=== PATIENT | male | born 1965 | race Caucasian/White ===

== ENCOUNTER 2017-04-25 20:11 | Inpatient (IN) | payer MEDICAID ==
[~2017-04-25 20:11] MED LIST: ALBU.5I NEB; FLUMAZENIL 0.5 MG/5 ML VIAL IV PUSH PRN; LORazepam 1 MG TAB PO PRN; LORazepam 2 MG TAB PO PRN; LORazepam 2 MG/ML VIAL IV PUSH PRN; NS + KCL 40 MEQ INJ 1,000 ML IV SCH; ONDANSETRON HCL 4 MG/2 ML VIAL IV PUSH PRN; POTASSIUM CHLORIDE 20 MEQ CONTROLLED RELEASE TAB PO ONE; SODIUM CHLORIDE 0.9% FLUSH 10 ML FLUSH IV FLUSH PRN; VENTAER INH
[2017-04-25 20:30] VITALS: BP 142/90; PULSE 66; RESP 18; TEMP 98.9; O2SAT 99
[2017-04-25] MEDS: CALCIUM CARBONATE 1.25 GM (CA 500 MG) TAB PO SCH (21:00)
--- NOTE | 2017-04-25 21:34 | HHI.HP ---
[facility]Staff Admission Diagnosis Alcohol Intoxication, hyperkalemia, hypernatremia . Diagnoses: (1) Alcohol intoxication Chief Complaint: "I guess I must have drunk too much" Travel History International Travel<30 Days: No Contact w/Intl Traveler <30 Da: No History of Present Illness Mr. Franco is a 52-year-old male with a history of alcohol abuse, pituitary adenoma, COPD, asthma, GERD, and gastritis who presents to the emergency room in [place] on 04/25/2017 after being seen appearing intoxicated by police officers. He was transferred to [facility] for treatment of severe hypokalemia and hypernatremia. The patient is seen in the CDU. He reports that he only drank half a bottle of mouthwash today and was seen by police perhaps walking funny and the next thing he knew, he was picked up by an ambulance and brought to the hospital. He reports he did not think he was drinking too much. He reports not drinking daily. He denies any history of seizures though they are noted in the medical record being reported and related to alcohol withdrawal. He denies fever but reports he is constantly cold and feeling chilled. He reports diarrhea lasting for 90 days with recent history of antibiotics but diarrhea has been present longer than that treatment and does not appear to be related. He states his stools are clear liquid without blood or black discoloration. He reports stool occurring 10 times per day. He reports some burning with urination but denies any penile discharge. He denies hematuria. He reports CVA tenderness though I was unable to elicit this upon examination. Urinalysis was negative. He denies chest pain, cough, shortness of breath, or syncope. He reports getting healthcare at [facility]" but cannot tell me what his doctor's name is. He states he was recently diagnosed with pituitary adenoma and "thin bones". Review of Systems Except as stated in HPI: all other systems reviewed are Neg Past Family Social History Past Medical History Pituitary adenoma COPD Asthma "Thin bones" GERD Gastritis Alcohol abuse Tobacco abuse DTs Denies history of seizures today but this is noted in medical record as related to alcohol withdrawal Past Surgical History Cholecystectomy . Reported Medications Reported Meds & Active Scripts Active Reported Ventolin Hfa 18 GM Inh (Albuterol Sulfate) 90 Mcg/Act Aer 2 Puff INH Q4H PRN Albuterol Neb (Albuterol Sulfate) 2.5 Mg/0.5 Ml Neb 2.5 Mg NEB ONCE Note: The Albuterol Sulfate Inhalation Solution is concentrated and must be diluted. Read complete instructions carefully before using. . Allergies: Coded Allergies: ondansetron (Unverified Allergy, Severe, Nausea/Vomiting, 01/06/17) Active Ordered Medications Current Medications Sodium Chloride (NS Flush) 2 ml UNSCH PRN IV FLUSH FLUSH AFTER USING IV ACCESS ; Start 04/25/17 at 17:45 Sodium Chloride (NS Flush) 2 ml BID IV FLUSH ; Start 04/25/17 at 21:00 Folic Acid (Folate) 1 mg DAILY PO ; Start 04/26/17 at 09:00; Stop 05/01/17 at 08 :59 Thiamine HCl (Vitamin B1) 100 mg DAILY PO ; Start 04/26/17 at 09:00 Multivitamins/ Minerals Therapeutic (Theragran M Tab) 1 tab DAILY PO ; Start at 09:00; Stop 05/01/17 at 08:59 Ondansetron HCl (Zofran Inj) 4 mg Q6H PRN IV PUSH NAUSEA OR VOMITING; Start at 17:45 Flumazenil (Romazicon Inj) 0.2 mg Q1M PRN IV PUSH SEE LABEL COMMENTS; Start at 17:45 Lorazepam (Ativan) 1 mg Q4H PRN PO CIWA 8 - 10; Start 04/25/17 at 17:45 Lorazepam (Ativan Inj) 1 mg Q4H PRN IV PUSH CIWA 8 - 10; Start 04/25/17 at 17: 45 Lorazepam (Ativan) 2 mg Q2H PRN PO CIWA 11-14; Start 04/25/17 at 17:45 Lorazepam (Ativan Inj) 2 mg Q2H PRN IV PUSH CIWA 11-14; Start 04/25/17 at 17:45 Lorazepam (Ativan Inj) 2 mg Q1H PRN IV PUSH CIWA 15-20; Start 04/25/17 at 17:45 Lorazepam (Ativan Inj) 2 mg Q15M PRN IV PUSH CIWA > 20; Start 04/25/17 at 17:45 Potassium Chloride/Sodium Chloride 1,000 ml @ 84 mls/hr [id number] IV ; Start 04/25/17 at 20:00; Stop 04/25/17 at 21:05; Status DC Potassium Chloride (KCl) 40 meq ONCE ONCE PO ; Start 04/25/17 at 20:00; Stop 04/25/17 at 20:21; Status DC Calcium Carbonate (Oscal) 500 mg Q12HR PO ; Start 04/25/17 at 21:00 Potassium Chloride 40 meq/ Sodium Chloride 1,020 ml @ 84 mls/hr Q12H9M IV ; Start 04/25/17 at 21:15 Famotidine (Pepcid) 20 mg BID PO ; Start 04/25/17 at 21:45 . Family History Mother with heart disease and COPD Father with heart disease . Social History Tobacco: Smokes one half pack per day for many years Alcohol: Reports alcohol use twice a week and just a few drinks when he does drink Illicit Drugs: Denies . Physical Exam Vital Signs Vital Signs Date Time Temp Pulse Resp B/P (MAP) Pulse Ox O2 Delivery O2 Flow Rate FiO2 04/25/17 20:30 98.9 66 18 142/90 (107) 99 Physical Exam GENERAL: This is a cachectic, chronically ill-appearing male patient who appears older than stated age, in no apparent distress. SKIN: Bug bites noted at base of neck, no lice noted upon inspection of head and hair. Cool and dry. HEAD: Atraumatic. Normocephalic. EYES: No scleral icterus. No injection or drainage. ENT: Nose without bleeding, purulent drainage. NECK: Trachea midline. No JVD. CARDIOVASCULAR: Regular rate and rhythm without murmurs, gallops, or rubs. RESPIRATORY: Clear to auscultation. Breath sounds equal bilaterally. No wheezes , rales, or rhonchi. GASTROINTESTINAL: Abdomen soft, non-tender, nondistended. No guarding. MUSCULOSKELETAL: Extremities without clubbing, cyanosis, or edema. No calf tenderness. Tremors noted bilateral hands. NEUROLOGICAL: Awake and alert. Motor and sensory grossly within normal limits. Normal speech. . Laboratory From [place]: Laboratory Tests Test 04/25/17 13:35 04/25/17 16:00 04/25/17 17:25 White Blood Count 3.8 TH/MM3 Red Blood Count 2.78 MIL/MM3 Hemoglobin 11.1 GM/DL Hematocrit 30.3 % Mean Corpuscular Volume 109.0 FL Mean Corpuscular Hemoglobin 39.9 PG Mean Corpuscular Hemoglobin Concent 36.6 % Platelet Count 128 TH/MM3 Mean Platelet Volume 10.8 FL Differential Total Cells Counted 100 Neutrophils % (Manual) 56 % Lymphocytes % 32 % Monocytes % 10 % Eosinophils % 2 % Neutrophils # (Manual) 2.1 TH/MM3 Differential Comment FINAL DIFF MANUAL Platelet Estimate LOW Platelet Morphology Comment NORMAL Polychromasia 2.0 % Target Cells 1+ Stomatocytes 1+ Protein Corrected Calcium 7.7 MG/DL Lipase 160 U/L Salicylates Level 2.1 MG/DL Acetaminophen Level 2.2 MCG/ML Ethyl Alcohol Level 284 MG/DL Urine Collection Type CLEAN CATCH Urine Color YELLOW Urine Turbidity CLEAR Urine pH 7.0 Urine Specific [place] 1.010 Urine Protein NEG mg/dL Urine Glucose (UA) NEG mg/dL Urine Ketones NEG mg/dL Urine Occult Blood NEG Urine Nitrite NEG Urine Bilirubin NEG Urine Urobilinogen 0.2 MG/DL Urine Leukocyte Esterase NEG Urine WBC 0-2 /hpf Microscopic Urinalysis Comment CULT NOT INDICATED Urine Opiates Screen NEG Urine Barbiturates Screen NEG Urine Amphetamines Screen NEG Urine Benzodiazepines Screen NEG Urine Cocaine Screen NEG Urine Cannabinoids Screen NEG Blood Urea Nitrogen 4 MG/DL Creatinine 0.50 MG/DL Random Glucose 112 MG/DL Total Protein 5.9 GM/DL Albumin 2.5 GM/DL Calcium Level 8.2 MG/DL Alkaline Phosphatase 125 U/L Aspartate Amino Transf (AST/SGOT) 92 U/L Alanine Aminotransferase (ALT/SGPT) 37 U/L Total Bilirubin 0.6 MG/DL Sodium Level 152 MEQ/L Potassium Level 2.7 MEQ/L Chloride Level 117 MEQ/L Carbon Dioxide Level 26.0 MEQ/L Anion Gap 9 MEQ/L Estimat Glomerular Filtration Rate 176 ML/MIN Caprini VTE Risk Assessment Caprini VTE Risk Assessment: No/Low Risk (score <= 1) Caprini Risk Assessment Model Point Value = 1 Point Value = 2 Point Value = 3 Point Value = 5 Age 41-60 Minor surgery BMI > 25 kg/m2 Swollen legs Varicose veins or History of unexplained or recurrent spontaneous Oral contraceptives or hormone replacement Sepsis (< 1 month) Serious lung disease, including pneumonia (< 1 month) Abnormal pulmonary function Acute myocardial infarction Congestive heart failure (< 1 month) History of inflammatory bowel disease Medical patient at bed rest Age 61-74 Arthroscopic surgery Major open surgery (> 45 min) Laparoscopic surgery (> 45 min) Malignancy Confined to bed (> 72 hours) Immobilizing plaster cast Central venous access Age >= 75 History of VTE Family history of VTE Factor V Leiden Prothrombin [id number] Lupus anticoagulant Anticardiolipin antibodies Elevated serum homocysteine Heparin-induced thrombocytopenia Other congenital or acquired thrombophilia Stroke (< 1 month) Elective arthroplasty Hip, pelvis, or leg fracture Acute spinal cord injury (< 1 month) Prophylaxis Regimen Total Risk Factor Score Risk Level Prophylaxis Regimen 0-1 Low Early ambulation 2 Moderate Order ONE of the following: *Sequential Compression Device (SCD) *Heparin 5000 units SQ BID 3-4 Higher Order ONE of the following medications: *Heparin 5000 units SQ TID *Enoxaparin/Lovenox 40 mg SQ daily (WT < 150 kg, CrCl > 30 mL/min) *Enoxaparin/Lovenox 30 mg SQ daily (WT < 150 kg, CrCl > 10-29 mL/min) *Enoxaparin/Lovenox 30 mg SQ BID (WT < 150 kg, CrCl > 30 mL/min) AND/OR *Sequential Compression Device (SCD) 5 or more Highest Order ONE of the following medications: *Heparin 5000 units SQ TID (Preferred with Epidurals) *Enoxaparin/Lovenox 40 mg SQ daily (WT < 150 kg, CrCl > 30 mL/min) *Enoxaparin/Lovenox 30 mg SQ daily (WT < 150 kg, CrCl > 10-29 mL/min) *Enoxaparin/Lovenox 30 mg SQ BID (WT < 150 kg, CrCl > 30 mL/min) AND *Sequential Compression Device (SCD) Assessment and Plan Problem List: (1) Alcohol intoxication ICD Code: F10.929 - Alcohol use, unspecified with intoxication, unspecified Status: Acute (2) Hypokalemia ICD Code: E87.6 - Hypokalemia (3) Hypernatremia ICD Code: E87.0 - Hyperosmolality and hypernatremia (4) Pituitary adenoma ICD Code: D35.2 - Benign neoplasm of pituitary gland (5) Diarrhea ICD Code: R19.7 - Diarrhea, unspecified (6) Pancytopenia ICD Code: D61.818 - Other pancytopenia (7) Tobacco abuse ICD Code: Z72.0 - Tobacco use Assessment and Plan Mr. Franco is a 52-year-old male with a history of alcohol abuse, pituitary adenoma, COPD, asthma, GERD, and gastritis who presents to the emergency room in [place] on 04/25/2017 after being seen appearing intoxicated by police officers. He was transferred to [facility] for treatment of severe hypokalemia and hypernatremia. Alcohol Intoxication - Denies daily alcohol use, reports history of DTs, denies history of alcohol withdrawal seizures - Reports drinking half a bottle of mouthwash today - ETOH 284 on admission, AST elevated at 92 and ALT normal at 37 suggestive of alcohol effect - [facility] protocol - Seizure precautions - Supplement with folic acid, thiamine, and multivitamins Severe hypokalemia - Potassium 2.1 initially and 2.7 on recheck - Potassium 50 mEq by mouth given in [place] - Patient should receive another 50 mEq by mouth here and half normal saline with 40 mEq of potassium running at 84 cc per hour - Recheck BMP in a.m. and follow results - Replace potassium as needed - Continuous cardiac telemetry to monitor for arrhythmia Hypernatremia, chronic - Sodium went from 150-152 (was 149 in September 2016) - Half normal saline with 40 mEq potassium at 84 cc/h to be infused - Check sodium in a.m. History of pituitary adenoma - will check TSH and follow results Diarrhea, chronic - We'll check stool culture, stool for C. difficile, and ova and parasites Pancytopenia - likely secondary to alcohol abuse - check iron studies - consider hematology consultation Tobacco Abuse - encouraged patient to quit smoking DVT prophylaxis - Early ambulation . Discussed Condition With Dr. Lawson, patient, and RN Casie Burroughs Apr 25, 2017 21:34
[2017-04-25] MEDS: SODIUM CHLORIDE 0.9% FLUSH 10 ML FLUSH IV FLUSH SCH (22:12)
[2017-04-25] MEDS: FAMOTIDINE 20 MG TAB PO SCH (22:15)
[2017-04-25] MEDS: POTASSIUM CHLORIDE INJ 40 MEQ in SODIUM CHLOR 0.45% 1000 ML INJ 1,000 ML IV SCH (22:17)
[2017-04-25] MEDS ORDERED: RESP: ALBUTEROL 2.5 MG/IPRATROPIUM 0.5 MG NEB (PRN) NEB (22:30)
[2017-04-25 23:01] VITALS: BP 125/81; PULSE 71; RESP 17; TEMP 98.9; O2SAT 95
[2017-04-26] MEDS ORDERED: POTASSIUM CHLORIDE 25 MEQ EFFERVESCENT TAB PO ONE ×2 (01:30→15:15)
[2017-04-26 04:07] VITALS: BP 135/85; PULSE 85; RESP 17; TEMP 98.7; O2SAT 98
[2017-04-26 05:05] LABS: C. DIFF EPI 027 PRESUMPTIVE NEGATIVE (NEGATIVE)
[2017-04-26 07:22] VITALS: BP 151/81; PULSE 82; RESP 22; TEMP 98.2; O2SAT 98
[2017-04-26 07:46] VITALS: BP 140/87; PULSE 81; RESP 22; TEMP 97.4; O2SAT 100
[2017-04-26] MEDS: CALCIUM CARBONATE 1.25 GM (CA 500 MG) TAB PO SCH ×2 (09:00→22:48)
[2017-04-26] MEDS: MULTIVITAMINS/MINERALS THERAPEUTIC TAB PO SCH (09:00)
[2017-04-26] MEDS: POTASSIUM CHLORIDE INJ 40 MEQ in SODIUM CHLOR 0.45% 1000 ML INJ 1,000 ML IV SCH (09:24)
[2017-04-26] MEDS: THIAMINE HCL 100 MG TAB PO SCH (10:04)
[2017-04-26] MEDS: FAMOTIDINE 20 MG TAB PO SCH ×2 (10:05→22:48)
[2017-04-26] MEDS: FOLIC ACID 1 MG TAB PO SCH (10:05)
[2017-04-26] MEDS: SODIUM CHLORIDE 0.9% FLUSH 10 ML FLUSH IV FLUSH SCH ×2 (10:05→22:49)
--- NOTE | 2017-04-26 10:44 | HHI.DCPOC ---
Discharge Care Plan Diagnosis: (1) Alcohol intoxication (2) Hypokalemia (3) Hypernatremia (4) Tobacco abuse (5) Diarrhea Goals to Promote Your Health * To prevent worsening of your condition and complications * To maintain your health at the optimal level Directions to Meet Your Goals Take your medications as prescribed Follow your dietary instruction Follow activity as directed Keep your appointments as scheduled Take your immunizations and boosters as scheduled If your symptoms worsen call your PCP, if no PCP go to Urgent Care Center or Emergency Room Smoking is Dangerous to Your Health. Avoid second hand smoke Call the 24-hour hour crisis hotline for domestic abuse at Supriya Loera PA-C Apr 26, 2017 10:44
--- NOTE | 2017-04-26 10:56 | HHI.PR ---
Subjective Remarks Follow up Alcohol intoxication/electrolyte abnormalities 04/26/17-patient seen and examined, alert and oriented 3. No acute event overnight. Taking by mouth without any compression nausea and vomiting. Said he's been having chronic diarrhea 6 weeks. C. difficile PCR and stool for ova and parasite negative. Patient reported a prior history of negative HIV testing 4 years ago Vitals stable. Objective Vitals Vital Signs Date Time Temp Pulse Resp B/P (MAP) Pulse Ox O2 Delivery O2 Flow Rate FiO2 04/26/17 07:46 97.4 81 22 140/87 (104) 100 04/26/17 07:22 98.2 82 22 151/81 (104) 98 04/26/17 04:07 98.7 85 17 135/85 (102) 98 04/25/17 23:01 98.9 71 17 125/81 (96) 95 04/25/17 20:30 98.9 66 18 142/90 (107) 99 I/O 04/25/17 04/25/17 04/25/17 04/26/17 04/26/17 04/26/17 07:00 15:00 23:00 07:00 15:00 23:00 Intake Total 480 ml Output Total 4 ml Balance 476 ml Intake Oral 480 ml Output Urine Total 4 ml Objective Remarks GENERAL: NAD SKIN: Warm and dry. HEAD: Normocephalic. EYES: No scleral icterus. No injection or drainage. NECK: Supple, trachea midline. No JVD or lymphadenopathy. CARDIOVASCULAR: Regular rate and rhythm without murmurs, gallops, or rubs. RESPIRATORY: Breath sounds equal bilaterally. No accessory muscle use. GASTROINTESTINAL: Abdomen soft, non-tender, nondistended. MUSCULOSKELETAL: No cyanosis, or edema. BACK: Nontender without obvious deformity. No CVA tenderness. A/P Problem List: (1) Alcohol intoxication ICD Code: F10.929 - Alcohol use, unspecified with intoxication, unspecified Status: Resolved (2) Hypokalemia ICD Code: E87.6 - Hypokalemia (3) Hypernatremia ICD Code: E87.0 - Hyperosmolality and hypernatremia (4) Pituitary adenoma ICD Code: D35.2 - Benign neoplasm of pituitary gland (5) Diarrhea ICD Code: R19.7 - Diarrhea, unspecified Status: Chronic (6) Pancytopenia ICD Code: D61.818 - Other pancytopenia (7) Tobacco abuse ICD Code: Z72.0 - Tobacco use Status: Chronic Assessment and Plan 52-year-old man with Alcohol Intoxication - Resolved -Patient strongly counseled to quit work provided alcohol cessation - [facility] protocol - Seizure precautions - Supplement with folic acid, thiamine, and multivitamins Severe hypokalemia: Likely secondary from GI loss -Replace electrolyte and monitor -Discharge home on potassium supplements - Replace potassium as needed - Continuous cardiac telemetry to monitor for arrhythmia Hypernatremia, chronic - Half normal saline with 40 mEq potassium at 84 cc/h to be infused - BMP pending this morning History of pituitary adenoma - TSH pending and follow results Diarrhea, chronic - C. difficile PCR and stool for ova and parasites negative -He consented for HIV testing Pancytopenia - likely secondary to alcohol abuse - check iron studies - Hematology consultation outpatient - Check for HIV Tobacco Abuse - encouraged patient to quit smoking DVT prophylaxis - Early ambulation Discharge Planning Discharge patient to home Condition on discharge: Improved Regular Diet as tolerated [place] activity Rx written:none Follow-up with primary care physician in 1 week Problem Qualifiers (1) Diarrhea: Qualified Codes: R19.7 - Diarrhea, unspecified Bon Montes MD Apr 26, 2017 10:56
[2017-04-26] MEDS ORDERED: THIA100 PO (10:58)
[2017-04-26 13:07] LABS: AUTOMATED NEUTROPHIL # 4.3 TH/MM3 (1.8-7.7); BASOPHIL % 0.7 % (0.0-2.0); EOSINOPHIL # 0.1 TH/MM3 (0-0.4); HEMATOCRIT 33.9 % (39.0-51.0); HEMO FLAGS DIFF FINAL; LYMPH % 17.2 % (9.0-44.0); MEAN CORPUSCULAR HGB CONC 35.1 % (32.0-36.0); MONO % 7.1 % (0.0-8.0); PLATELET COUNT 117 TH/MM3 (150-450); RED BLOOD COUNT 2.98 MIL/MM3 (4.50-5.90); RED CELL DISTRIBUTION WIDTH 17.3 % (11.6-17.2); WHITE BLOOD COUNT 5.9 TH/MM3 (4.0-11.0)
[2017-04-26 13:54] LABS: ALKALINE PHOSPHATASE 128 U/L (45-117); ALT (GPT) 34 U/L (12-78); ANION GAP 7 MEQ/L (5-15); AST (GOT) 96 U/L (15-37); BICARBONATE 28.2 MEQ/L (21.0-32.0); BLOOD UREA NITROGEN 3 MG/DL (7-18); CHLORIDE 108 MEQ/L (98-107); GLOMERULAR FILTRATION RATE 114 ML/MIN (>89); SODIUM (NA) 143 MEQ/L (136-145); TRANSFERRIN IRON PROFILE 100 MG/DL (200-360)
[2017-04-26 13:57] LABS: POTASSIUM 2.4 MEQ/L (3.5-5.1)
[2017-04-26] MEDS ORDERED: MAGNESIUM SULFATE 1 GM PREMIX 100 ML IV ONE ×2 (14:15→15:30)
[2017-04-26] MEDS ORDERED: POTASSIUM CHLORIDE 20 MEQ CONTROLLED RELEASE TAB PO ONE (14:15)
[2017-04-26] MEDS ORDERED: LOPERAMIDE HCL 2 MG CAP PO PRN (14:15)
[2017-04-26 16:01] VITALS: BP 131/89; PULSE 74; RESP 22; TEMP 98.2; O2SAT 99
[2017-04-26] MEDS: POTASSIUM CHLOR 20 MEQ PREMIX 100 ML IV SCH ×2 (17:18→19:50)
[2017-04-26] MEDS ORDERED: LACT PO (17:30)
[2017-04-26] MEDS: LACTOBACILLUS ACIDOPHILUS TAB PO SCH (18:36)
[2017-04-26 22:54] VITALS: BP 139/82; PULSE 69; RESP 18; TEMP 98.5; O2SAT 98
[2017-04-27 04:11] VITALS: BP 136/91; PULSE 68; RESP 18; TEMP 98.5; O2SAT 98
[2017-04-27 06:05] LABS: BICARBONATE 25.3 MEQ/L (21.0-32.0); MAGNESIUM 1.4 MG/DL (1.5-2.5)
[2017-04-27 06:20] LABS: POTASSIUM 2.7 MEQ/L (3.5-5.1)
[2017-04-27 06:31] LABS: CALCIUM-PROTEIN CORRECTED 7.9 MG/DL (8.5-10.1)
[2017-04-27 07:23] VITALS: BP 141/87; PULSE 63; RESP 19; TEMP 98.1; O2SAT 98
[2017-04-27] MEDS ORDERED: POTASSIUM CHLORIDE 20 MEQ CONTROLLED RELEASE TAB PO ONE ×2 (08:30→09:00)
[2017-04-27] MEDS: POTASSIUM CHLORIDE INJ 40 MEQ in SODIUM CHLOR 0.45% 1000 ML INJ 1,000 ML IV SCH (08:37)
[2017-04-27] MEDS: LACTOBACILLUS ACIDOPHILUS TAB PO SCH (08:38)
[2017-04-27] MEDS: FOLIC ACID 1 MG TAB PO SCH (08:38)
[2017-04-27] MEDS: SODIUM CHLORIDE 0.9% FLUSH 10 ML FLUSH IV FLUSH SCH (08:38)
[2017-04-27] MEDS: MULTIVITAMINS/MINERALS THERAPEUTIC TAB PO SCH (08:39)
[2017-04-27] MEDS: THIAMINE HCL 100 MG TAB PO SCH (08:39)
[2017-04-27] MEDS: FAMOTIDINE 20 MG TAB PO SCH (08:39)
[2017-04-27] MEDS: CALCIUM CARBONATE 1.25 GM (CA 500 MG) TAB PO SCH (08:40)
[2017-04-27] MEDS: MAGNESIUM SULFATE 1 GM PREMIX 100 ML IV SCH ×2 (09:30→09:47)
--- NOTE | 2017-04-27 10:18 | HHI.PR ---
Subjective Remarks Mr. Franco is a 52-year-old male with a history of alcohol abuse, pituitary adenoma, COPD, asthma, GERD, and gastritis who presents to the emergency room in [place] on 04/25/2017 after being seen appearing intoxicated by police officers. He was transferred to [facility] for treatment of severe hypokalemia and hypernatremia. The patient is seen in the CDU. He reports that he only drank half a bottle of mouthwash today and was seen by police perhaps walking funny and the next thing he knew, he was picked up by an ambulance and brought to the hospital. He reports he did not think he was drinking too much. He reports not drinking daily. He denies any history of seizures though they are noted in the medical record being reported and related to alcohol withdrawal. He denies fever but reports he is constantly cold and feeling chilled. He reports diarrhea lasting for 90 days with recent history of antibiotics but diarrhea has been present longer than that treatment and does not appear to be related. He states his stools are clear liquid without blood or black discoloration. He reports stool occurring 10 times per day. He reports some burning with urination but denies any penile discharge. He denies hematuria. He reports CVA tenderness though I was unable to elicit this upon examination. Urinalysis was negative. He denies chest pain, cough, shortness of breath, or syncope. He reports getting healthcare at [facility]" but cannot tell me what his doctor's name is. He states he was recently diagnosed with pituitary adenoma and "thin bones". 04-27 patient wants to go home. Has electrolyte imbalance will replace Needs transport back to [place] area will be discharged to home today Discussed with patient and RN and case management Objective Vitals Vital Signs Date Time Temp Pulse Resp B/P (MAP) Pulse Ox O2 Delivery O2 Flow Rate FiO2 04/27/17 07:23 98.1 63 19 141/87 (105) 98 04/27/17 04:11 98.5 68 18 136/91 (106) 98 04/26/17 22:54 98.5 69 18 139/82 (101) 98 04/26/17 16:01 98.2 74 22 131/89 (103) 99 I/O 04/26/17 04/26/17 04/26/17 04/27/17 04/27/17 04/27/17 07:00 15:00 23:00 07:00 15:00 23:00 Intake Total 480 ml 1000 ml Output Total 4 ml 700 ml 2400 ml Balance 476 ml -700 ml -1400 ml Intake Oral 480 ml 1000 ml Output Urine Total 4 ml 700 ml 2400 ml # Voids 1 Result Diagram: 04/26/17 1248 04/27/17 0510 Other Results Laboratory Tests Test 04/26/17 03:41 04/26/17 12:48 04/26/17 14:10 04/26/17 21:17 Stool C. difficile Toxin (PCR) NEGATIVE Stl C. difficile Toxin Epiderm 027 PRESUMPTIVE NEGATIVE White Blood Count 5.9 TH/MM3 Red Blood Count 2.98 MIL/MM3 Hemoglobin 11.9 GM/DL Hematocrit 33.9 % Mean Corpuscular Volume 114.0 FL Mean Corpuscular Hemoglobin 40.0 PG Mean Corpuscular Hemoglobin Concent 35.1 % Red Cell Distribution Width 17.3 % Platelet Count 117 TH/MM3 Mean Platelet Volume 9.4 FL Neutrophils (%) (Auto) 73.0 % Lymphocytes (%) (Auto) 17.2 % Monocytes (%) (Auto) 7.1 % Eosinophils (%) (Auto) 2.0 % Basophils (%) (Auto) 0.7 % Neutrophils # (Auto) 4.3 TH/MM3 Lymphocytes # (Auto) 1.0 TH/MM3 Monocytes # (Auto) 0.4 TH/MM3 Eosinophils # (Auto) 0.1 TH/MM3 Basophils # (Auto) 0.0 TH/MM3 CBC Comment DIFF FINAL Differential Comment Blood Urea Nitrogen 3 MG/DL Creatinine 0.73 MG/DL Random Glucose 132 MG/DL Total Protein 6.4 GM/DL Albumin 2.7 GM/DL Calcium Level 7.7 MG/DL Alkaline Phosphatase 128 U/L Aspartate Amino Transf (AST/SGOT) 96 U/L Alanine Aminotransferase (ALT/SGPT) 34 U/L Total Bilirubin 1.0 MG/DL Sodium Level 143 MEQ/L Potassium Level 2.4 MEQ/L 3.1 MEQ/L Chloride Level 108 MEQ/L Carbon Dioxide Level 28.2 MEQ/L Anion Gap 7 MEQ/L Estimat Glomerular Filtration Rate 114 ML/MIN Iron Level 125 MCG/DL Total Iron Binding Capacity 140 MCG/DL Percent Iron Saturation 89.3 % Thyroid Stimulating Hormone 3rd Gen 2.070 uIU/ML Magnesium Level 1.3 MG/DL Vitamin B12 Level 552 PG/ML Folate 17.1 NG/ML Test 04/27/17 05:10 Blood Urea Nitrogen 1 MG/DL Creatinine 0.57 MG/DL Random Glucose 119 MG/DL Total Protein 5.9 GM/DL Calcium Level 7.3 MG/DL Magnesium Level 1.4 MG/DL Sodium Level 143 MEQ/L Potassium Level 2.7 MEQ/L Chloride Level 109 MEQ/L Carbon Dioxide Level 25.3 MEQ/L Anion Gap 9 MEQ/L Estimat Glomerular Filtration Rate 151 ML/MIN Protein Corrected Calcium 7.9 MG/DL Objective Remarks GENERAL: Awake alert talkative and cooperative SKIN: Warm and dry. HEAD: Atraumatic. Normocephalic. EYES: Pupils equal and round. No scleral icterus. No injection or drainage. Extraocular muscles intact ENT: No nasal bleeding or discharge. Mucous membranes pink and moist. Tongue is midline NECK: Trachea midline. No JVD. Supple CARDIOVASCULAR: Regular rate and rhythm. S1 and S2 no S3 or S4 RESPIRATORY: No accessory muscle use. Clear to auscultation. Breath sounds equal bilaterally. GASTROINTESTINAL: Abdomen soft, non-tender, nondistended. Hepatic and splenic margins not palpable. MUSCULOSKELETAL: Extremities without clubbing, cyanosis, or edema. No obvious deformities. NEUROLOGICAL: Awake and alert. No obvious cranial nerve deficits. Motor grossly within normal limits. Five out of 5 muscle strength in the arms and legs. Normal speech. PSYCHIATRIC: Appropriate mood and affect; insight and judgment normal. Procedures NONE Medications and IVs Current Medications Sodium Chloride (NS Flush) 2 ml UNSCH PRN IV FLUSH FLUSH AFTER USING IV ACCESS ; Start 04/25/17 at 17:45 Sodium Chloride (NS Flush) 2 ml BID IV FLUSH Last administered on 04/27/17 08: 38; Start 04/25/17 at 21:00 Folic Acid (Folate) 1 mg DAILY PO Last administered on 04/27/17 08:38; Start 04/26/17 at 09:00; Stop 05/01/17 at 08:59 Thiamine HCl (Vitamin B1) 100 mg DAILY PO Last administered on 04/27/17 08:39 ; Start 04/26/17 at 09:00 Multivitamins/ Minerals Therapeutic (Theragran M Tab) 1 tab DAILY PO Last administered on 04/27/17 08:39; Start 04/26/17 at 09:00; Stop 05/01/17 at 08:59 Ondansetron HCl (Zofran Inj) 4 mg Q6H PRN IV PUSH NAUSEA OR VOMITING; Start at 17:45 Flumazenil (Romazicon Inj) 0.2 mg Q1M PRN IV PUSH SEE LABEL COMMENTS; Start at 17:45 Lorazepam (Ativan) 1 mg Q4H PRN PO CIWA 8 - 10; Start 04/25/17 at 17:45 Lorazepam (Ativan Inj) 1 mg Q4H PRN IV PUSH CIWA 8 - 10; Start 04/25/17 at 17: 45 Lorazepam (Ativan) 2 mg Q2H PRN PO CIWA 11-14; Start 04/25/17 at 17:45 Lorazepam (Ativan Inj) 2 mg Q2H PRN IV PUSH CIWA 11-14 Last administered on 22:25; Start 04/25/17 at 17:45 Lorazepam (Ativan Inj) 2 mg Q1H PRN IV PUSH CIWA 15-20; Start 04/25/17 at 17:45 Lorazepam (Ativan Inj) 2 mg Q15M PRN IV PUSH CIWA > 20; Start 04/25/17 at 17:45 Potassium Chloride/Sodium Chloride 1,000 ml @ 84 mls/hr [id number] IV ; Start 04/25/17 at 20:00; Stop 04/25/17 at 21:05; Status DC Potassium Chloride (KCl) 40 meq ONCE ONCE PO ; Start 04/25/17 at 20:00; Stop 04/25/17 at 20:21; Status DC Calcium Carbonate (Oscal) 500 mg Q12HR PO Last administered on 04/27/17 08:40 ; Start 04/25/17 at 21:00 Potassium Chloride 40 meq/ Sodium Chloride 1,020 ml @ 84 mls/hr Q12H9M IV Last administered on 04/27/17 08:37; Start 04/25/17 at 21:15 Famotidine (Pepcid) 20 mg BID PO Last administered on 04/27/17 08:39; Start 04/25/17 at 21:45 Albuterol/ Ipratropium (Duoneb Neb) 1 ampule Q4HR NEB PRN NEB SOB/WHEEZING; Start 04/25/17 at 22:30 Potassium Bicarb/ Potassium Chloride (K-Lyte Cl Eff) 50 meq ONCE ONCE PO Last administered on 04/26/17 01:44; Start 04/26/17 at 01:30; Stop 04/26/17 at 01:31; Status DC Magnesium Sulfate/ Dextrose 100 ml @ 100 mls/hr ONCE ONCE IV Last administered on 04/26/17 15:03; Start 04/26/17 at 14:15; Stop 04/26/17 at 15:14 ; Status DC Potassium Chloride 100 ml @ 50 mls/hr Q2H IV Last administered on 04/26/17 19 :50; Start 04/26/17 at 15:00; Stop 04/26/17 at 18:59; Status DC Lactobacillus Acidophilus (Lactinex) 1 tab TID PO Last administered on 08:38; Start 04/26/17 at 18:00 Loperamide HCl (Imodium) 2 mg Q6H PRN PO DIARRHEA; Start 04/26/17 at 14:15 Potassium Chloride (KCl) 60 meq ONCE ONCE PO ; Start 04/26/17 at 14:15; Stop 04/26/17 at 15:16; Status DC Potassium Bicarb/ Potassium Chloride (K-Lyte Cl Eff) 50 meq ONCE ONCE PO Last administered on 04/26/17 16:08; Start 04/26/17 at 15:15; Stop 04/26/17 at 15:18; Status DC Magnesium Sulfate/ Dextrose 100 ml @ 100 mls/hr ONCE ONCE IV Last administered on 04/26/17 16:16; Start 04/26/17 at 15:30; Stop 04/26/17 at 16:29 ; Status DC Magnesium Sulfate/ Dextrose 100 ml @ 100 mls/hr Q1H IV Last administered on 09:47; Start 04/27/17 at 08:30; Stop 04/27/17 at 10:29 Potassium Chloride (KCl) 40 meq ONCE ONCE PO Last administered on 04/27/17 09 :48; Start 04/27/17 at 08:30; Stop 04/27/17 at 08:42; Status DC Potassium Chloride (KCl) 40 meq ONCE ONCE PO Last administered on 04/27/17t 09 :48; Start 04/27/17 at 09:00; Stop 04/27/17 at 09:01; Status DC A/P Problem List: (1) Alcohol intoxication ICD Code: F10.929 - Alcohol use, unspecified with intoxication, unspecified Status: Resolved (2) Hypokalemia ICD Code: E87.6 - Hypokalemia (3) Hypernatremia ICD Code: E87.0 - Hyperosmolality and hypernatremia (4) Pituitary adenoma ICD Code: D35.2 - Benign neoplasm of pituitary gland (5) Diarrhea ICD Code: R19.7 - Diarrhea, unspecified Status: Chronic (6) Pancytopenia ICD Code: D61.818 - Other pancytopenia (7) Tobacco abuse ICD Code: Z72.0 - Tobacco use Status: Chronic Assessment and Plan Mr. Franco is a 52-year-old male with a history of alcohol abuse, pituitary adenoma, COPD, asthma, GERD, and gastritis who presents to the emergency room in [place] on 04/25/2017 after being seen appearing intoxicated by police officers. He was transferred to [facility] for treatment of severe hypokalemia and hypernatremia. Alcohol Intoxication - Denies daily alcohol use, reports history of DTs, denies history of alcohol withdrawal seizures - Reports drinking half a bottle of mouthwash today - ETOH 284 on admission, AST elevated at 92 and ALT normal at 37 suggestive of alcohol effect - [facility] protocol - Seizure precautions - Supplement with folic acid, thiamine, and multivitamins Severe hypokalemia - Potassium 2.1 initially and 2.7 on recheck - Potassium 50 mEq by mouth given in [place] - Patient should receive another 50 mEq by mouth here and half normal saline with 40 mEq of potassium running at 84 cc per hour - Recheck BMP in a.m. and follow results - Replace potassium as needed - Continuous cardiac telemetry to monitor for arrhythmia Hypo-magnesium will replace Hypernatremia, chronic - Sodium went from 150-152 (was 149 in September 2016) - Half normal saline with 40 mEq potassium at 84 cc/h to be infused - Check sodium in a.m. History of pituitary adenoma - will check TSH and follow results Diarrhea, chronic - We'll check stool culture, stool for C. difficile, and ova and parasites Pancytopenia - likely secondary to alcohol abuse - check iron studies - consider hematology consultation Tobacco Abuse - encouraged patient to quit smoking DVT prophylaxis - Early ambulation . Will need case management consult and help medications Discharge Planning Discharge to home today needs transport home Problem Qualifiers (1) Diarrhea: Qualified Codes: R19.7 - Diarrhea, unspecified Roland Borden DO Apr 27, 2017 10:18
[2017-04-27] MEDS ORDERED: FOLI1TAB6 PO (10:24)
[2017-04-27] MEDS ORDERED: LOPE2CAP2 PO (10:24)
[2017-04-27] MEDS ORDERED: POTA-163 PO (10:24)
[2017-04-27] MEDS ORDERED: MAGN400T2 PO (10:24)
[2017-04-27] MEDS ORDERED: VENTAER INH (10:24)
[2017-04-27] MEDS ORDERED: ALBU.5I NEB (10:24)
[2017-04-27] MEDS ORDERED: THERM PO (10:24)
[2017-04-27] MEDS ORDERED: CALC500 PO (10:24)
--- NOTE | 2017-04-27 10:25 | HHI.DS ---
Discharge Summary Admission Date Apr 25, 2017 at 20:14 Discharge Date: Apr 27, 2017 Admitting Diagnosis Alcohol Intoxication, hyperkalemia, hypernatremia . (1) Alcohol intoxication ICD Code: F10.929 - Alcohol use, unspecified with intoxication, unspecified Diagnosis: Principal Status: Resolved (2) Hypokalemia ICD Code: E87.6 - Hypokalemia Diagnosis: Principal (3) Hypernatremia ICD Code: E87.0 - Hyperosmolality and hypernatremia Diagnosis: Secondary (4) Pituitary adenoma ICD Code: D35.2 - Benign neoplasm of pituitary gland Diagnosis: Secondary (5) Diarrhea ICD Code: R19.7 - Diarrhea, unspecified Diagnosis: Secondary Status: Chronic (6) Pancytopenia ICD Code: D61.818 - Other pancytopenia Diagnosis: Secondary (7) Tobacco abuse ICD Code: Z72.0 - Tobacco use Diagnosis: Secondary Status: Chronic Procedures NONE Brief History - From Admission Mr. Franco is a 52-year-old male with a history of alcohol abuse, pituitary adenoma, COPD, asthma, GERD, and gastritis who presents to the emergency room in [place] on 04/25/2017 after being seen appearing intoxicated by police officers. He was transferred to [facility] for treatment of severe hypokalemia and hypernatremia. The patient is seen in the CDU. He reports that he only drank half a bottle of mouthwash today and was seen by police perhaps walking funny and the next thing he knew, he was picked up by an ambulance and brought to the hospital. He reports he did not think he was drinking too much. He reports not drinking daily. He denies any history of seizures though they are noted in the medical record being reported and related to alcohol withdrawal. He denies fever but reports he is constantly cold and feeling chilled. He reports diarrhea lasting for 90 days with recent history of antibiotics but diarrhea has been present longer than that treatment and does not appear to be related. He states his stools are clear liquid without blood or black discoloration. He reports stool occurring 10 times per day. He reports some burning with urination but denies any penile discharge. He denies hematuria. He reports CVA tenderness though I was unable to elicit this upon examination. Urinalysis was negative. He denies chest pain, cough, shortness of breath, or syncope. He reports getting healthcare at [facility]" but cannot tell me what his doctor's name is. He states he was recently diagnosed with pituitary adenoma and "thin bones". CBC/BMP: 04/26/17 1248 04/27/17 0510 Significant Findings Laboratory Tests Test 04/26/17 03:41 04/26/17 12:48 04/26/17 14:10 04/26/17 21:17 Red Blood Count 2.98 MIL/MM3 (4.50-5.90) Hemoglobin 11.9 GM/DL (13.0-17.0) Hematocrit 33.9 % (39.0-51.0) Mean Corpuscular Volume 114.0 FL (80.0-100.0) Mean Corpuscular Hemoglobin 40.0 PG (27.0-34.0) Red Cell Distribution Width 17.3 % (11.6-17.2) Platelet Count 117 TH/MM3 (150-450) Neutrophils (%) (Auto) 73.0 % (16.0-70.0) Blood Urea Nitrogen 3 MG/DL (7-18) Random Glucose 132 MG/DL (74-106) Albumin 2.7 GM/DL (3.4-5.0) Calcium Level 7.7 MG/DL (8.5-10.1) Alkaline Phosphatase 128 U/L (45-117) Aspartate Amino Transf (AST/SGOT) 96 U/L (15-37) Potassium Level 2.4 MEQ/L (3.5-5.1) 3.1 MEQ/L (3.5-5.1) Chloride Level 108 MEQ/L (98-107) Total Iron Binding Capacity 140 MCG/DL (250-450) Percent Iron Saturation 89.3 % (20-50) Magnesium Level 1.3 MG/DL (1.5-2.5) Test 04/27/17 05:10 Blood Urea Nitrogen 1 MG/DL (7-18) Creatinine 0.57 MG/DL (0.60-1.30) Random Glucose 119 MG/DL (74-106) Total Protein 5.9 GM/DL (6.4-8.2) Calcium Level 7.3 MG/DL (8.5-10.1) Magnesium Level 1.4 MG/DL (1.5-2.5) Potassium Level 2.7 MEQ/L (3.5-5.1) Chloride Level 109 MEQ/L (98-107) Protein Corrected Calcium 7.9 MG/DL (8.5-10.1) PE at Discharge GENERAL: Awake alert talkative and cooperative SKIN: Warm and dry. HEAD: Atraumatic. Normocephalic. EYES: Pupils equal and round. No scleral icterus. No injection or drainage. Extraocular muscles intact ENT: No nasal bleeding or discharge. Mucous membranes pink and moist. Tongue is midline NECK: Trachea midline. No JVD. Supple CARDIOVASCULAR: Regular rate and rhythm. S1 and S2 no S3 or S4 RESPIRATORY: No accessory muscle use. Clear to auscultation. Breath sounds equal bilaterally. GASTROINTESTINAL: Abdomen soft, non-tender, nondistended. Hepatic and splenic margins not palpable. MUSCULOSKELETAL: Extremities without clubbing, cyanosis, or edema. No obvious deformities. NEUROLOGICAL: Awake and alert. No obvious cranial nerve deficits. Motor grossly within normal limits. Five out of 5 muscle strength in the arms and legs. Normal speech. PSYCHIATRIC: Appropriate mood and affect; insight and judgment normal. Hospital Course Mr. Franco is a 52-year-old male with a history of alcohol abuse, pituitary adenoma, COPD, asthma, GERD, and gastritis who presents to the emergency room in [place] on 04/25/2017 after being seen appearing intoxicated by police officers. He was transferred to [facility] for treatment of severe hypokalemia and hypernatremia. The patient is seen in the CDU. He reports that he only drank half a bottle of mouthwash today and was seen by police perhaps walking funny and the next thing he knew, he was picked up by an ambulance and brought to the hospital. He reports he did not think he was drinking too much. He reports not drinking daily. He denies any history of seizures though they are noted in the medical record being reported and related to alcohol withdrawal. He denies fever but reports he is constantly cold and feeling chilled. He reports diarrhea lasting for 90 days with recent history of antibiotics but diarrhea has been present longer than that treatment and does not appear to be related. He states his stools are clear liquid without blood or black discoloration. He reports stool occurring 10 times per day. He reports some burning with urination but denies any penile discharge. He denies hematuria. He reports CVA tenderness though I was unable to elicit this upon examination. Urinalysis was negative. He denies chest pain, cough, shortness of breath, or syncope. He reports getting healthcare at [facility]" but cannot tell me what his doctor's name is. He states he was recently diagnosed with pituitary adenoma and "thin bones". 12-4 patient wants to go home. Has electrolyte imbalance will replace Needs transport back to [facility] will be discharged to home today Discussed with patient and RN and case management Pt Condition on Discharge: Stable Discharge Disposition: Discharge Home Discharge Time: <= 30 minutes Discharge Instructions DIET: Follow Instructions for: As Tolerated, No Restrictions Speech Therapy-Diet Recommends: Regular Activities you can perform: Regular-No Restrictions Follow up Referrals: Gastroenterology - 1 Week @ [facility] PCP Follow-up - 1 Week New Orders: BASIC METABOLIC PROF - 2-3 Days New Medications: Magnesium Oxide (Magnesium Oxide) 400 Mg Tab 800 MG PO BID for Nutritional Supplement, #120 TAB 0 Refills Potassium Chloride ER (Potassium Chloride ER) 20 Meq Tab 20 MEQ PO BID for Electrolyte Replacement, #60 TAB 0 Refills Folic Acid (Folic Acid) 1 Mg Tablet 1 MG PO DAILY for Nutritional Supplement, #30 TAB Lactobacillus Acidophilus (Acidophilus/l-Sporogenes) 35 Million Cell-25 Million Cell Tab 1 TAB PO TID for Diarrhea, #30 TAB Loperamide HCl (Hm Loperamide HCl) 2 Mg Cap 2 MG PO Q6H PRN for DIARRHEA, #120 CAP Multiple Vitamins W/ Minerals (Thera M Plus) 1 Tab 1 TAB PO DAILY for Nutritional Supplement, #30 TAB Oyster Shell (Oyster Calcium) 500 Mg Calcium (1250 Mg) Tab 500 MG PO Q12HR for Nutritional Supplement, #60 TAB Thiamine HCl (Gnp Vitamin B-1) 100 Mg Tab 100 MG PO DAILY for Alcohol Detox, #30 TAB Changed Medications: Albuterol Neb (Albuterol Neb) 2.5 Mg/0.5 Ml Neb 2.5 MG NEB Q6HR PRN for SOB/COUGH, #1 BOX 0 Refills (Changed from: ONCE) Note: The Albuterol Sulfate Inhalation Solution is concentrated and must be diluted. Read complete instructions carefully before using. Continued Medications: Albuterol 18 GM Inh (Ventolin Hfa 18 GM Inh) 90 Mcg/Act Aer 2 PUFF INH Q4H PRN for SHORTNESS OF BREATH, #1 INHALER 0 Refills (This prescription has been renewed) Roland Borden DO Apr 27, 2017 10:25
== END 2017-04-27 12:20 | disposition home or self-care (01) | DRG 897 ==
LOC: NEDDLT 20:11 → OBSVTOIN 20:14 → NEPFCDU 20:14
PROVIDERS: ADMIT Hospitalist; ATTEND Hospitalist
DX: F10.129 Alcohol abuse with intoxication, unspecified (principal); D61.818 Other pancytopenia; E87.0 Hyperosmolality and hypernatremia; E83.42 Hypomagnesemia; E87.6 Hypokalemia; D35.2 Benign neoplasm of pituitary gland; R19.7 Diarrhea, unspecified; J44.9 Chronic obstructive pulmonary disease, unspecified; J45.909 Unspecified asthma, uncomplicated; K21.9 Gastro-esophageal reflux disease without esophagitis; Y90.8 Blood alcohol level of 240 mg/100 ml or more; F17.210 Nicotine dependence, cigarettes, uncomplicated; K29.70 Gastritis, unspecified, without bleeding
CPT/HCPCS: 80048; 80053; 80307; 81001; 82272; 82607; 82746; 82948; 83540; 83550; 83690; 83735; 84132; 84155; 84443; 85007; 85025; 85027; 86703; 87328; 87329; 87493; 96365; 96375; J2060; J3411; J3475; J3480; J7030